=== PATIENT | female | born 1965 | race African-American/Black ===

== ENCOUNTER → 2016-12-22 | Outpatient (CLI) | payer BC, OTHER ==
[~2016-12-22] MED LIST: ALLERGY25 M1 PO; ALPRAZOLAM1 MG PO; BENTYL20 M1 PO; CETIRIZINE HC1 MG/ML PO; CIPROFLOXACIN500 M1 PO; DETROL LA2 MG DOB; FLUCONAZOLE150 M1 PO; GLUCOPHAGE500 MG PO; LISINOPRIL-HCTZ1 T14 PO; LISINOPRIL20 MG PO; NITROFURANTOIN100 M3 PO; OMEPRAZOLE40 M1 PO; ONDANSETRON ODT4 MG PO; POTASSIUM CHLO10 ME1 PO; SYNTHROID25 MCG PO; TIZANIDINE HCL2 MG PO; TRIAMCINOLONE AC1 GM EXT; VALIUM10 MG PO; [UNRECOGNIZED DRUG - REMARK]
--- NOTE | ~2016-12-22 | US98 ---
[facility] A Service of [facility] RADIOLOGY TEXT RESULTS PATIENT: FELICITAS BLACKBURN LOCATION: [facility] : 63 UNIT #: [id number] AGE: [address]: Elda Xie MD SEX: F ORDER DR: [id number] [facility] [address] [facility]. [place], [place] [address] [id number] O MR#: [id number] Acc #: [id number] NAME: FELICITAS BLACKBURN : 1965 SEX: F STUDY DATE/TIME: 12/22/2016 11:07 UNIT: [facility] ROOM: STUDY DESCRIPTION: US Pelvic Non-OB Complete Attending Physician: Elda Xie M.D. Referring Physician: Elda Xie M.D. Ordering Physician: Elda Xie M.D. Primary Care Physician: Elda Xie M.D. MEDICAL IMAGING REPORT This report is preliminary unless electronic signature is present EXAM Pelvic ultrasound INDICATION Ovarian cysts. These were seen on a prior ultrasound from 06/10/2016. This is a followup study. TECHNIQUE Veliz-scale, color Doppler, and spectral Doppler waveform analysis was performed through the patient's pelvis both transabdominally and transvaginally. FINDINGS The uterus measures up to 9.2 x 5.4 x 6.5 cm. It is somewhat heterogeneous in echotexture. Endometrium is thickened with [employer] measuring it up to 1.0 cm which would be abnormal in a postmenopausal woman. Patient reportedly had her last normal menstrual period 4 months ago. Patient does have a uterine fibroid measuring 1.3 x 1.5 x 1.6 cm. There is also probably a cyst seen within the uterus. There is debris is seen within the endometrial canal of uncertain clinical significance. Given endometrial thickening and heterogeneous appearance of the endometrium, I would suggest a gynecologic consultation for consideration for hysteroscopy. No free fluid is seen within the cul-de-sac. Patient's right ovary appears unremarkable. Left ovary was not seen. IMPRESSION 1. Very heterogeneous appearing endometrium, with potential fluid and debris seen within the endometrial canal. The endometrium is also thickened for a postmenopausal woman and reportedly patient's last normal menstrual period was 4 months ago. As a consequence, I would suggest gynecologic consultation for consideration for hysteroscopy. 2. Left ovary cannot be identified. Right ovary appears unremarkable. 3. Uterine fibroid. [facility] A Service of [facility] RADIOLOGY TEXT RESULTS PATIENT: FELICITAS BLACKBURN LOCATION: [facility] : 63 UNIT #: [id number] AGE: [address]: Elda Xie MD SEX: F ORDER DR: Dictated by... Gayatri Byers M.D. THIS IS AN ELECTRONICALLY VERIFIED REPORT Gayatri Byers M.D. at 12/23/2016 8:03 PM AFF/aa TD: 12/22/2016 19:10 JOB #: [id number] MEDICAL IMAGING REPORT COPY
== END | disposition home or self-care (01) ==
LOC: CWCC 10:34
DX: N83.209 Unspecified ovarian cyst, unspecified side (principal); R93.8 Abnormal findings on diagnostic imaging of other specified body structures; D25.9 Leiomyoma of uterus, unspecified
CPT/HCPCS: 76830; 76856

== ENCOUNTER → 2017-01-27 | Day surgery (SDC) | payer BC ==
--- NOTE | ~2017-01-27 | OR ---
Unit #: [id number] #: [id number] Patient: FELICITAS BLACKBURN [id number] [address] [place], [place] [address] [id number] O MR#: [id number] NAME: FELICITAS BLACKBURN ROOM: Date of Procedure: 01/27/2017 Admission Date: 01/27/2017 Surgeon: Jayedn Weaver M.D. : 1965 Attending Physician: Jayden Weaver M.D. Referring Physician: Jayden Weaver M.D. Primary Care Physician: Elda Xie M.D. OPERATIVE REPORT PROCEDURES PERFORMED Esophagogastroduodenoscopy with biopsy and colonoscopy to cecum. INDICATIONS FOR PROCEDURE The patient with irregular bowel movements, average risk for colorectal cancer, also with chronic GERD symptoms, and abdominal pain, undergoing evaluation with upper endoscopy and colonoscopy. MEDICATIONS Monitored anesthesia. POSTOPERATIVE FINDINGS 1. Mild gastritis. Biopsies taken. 2. Normal esophagus. 3. Normal duodenum and distal duodenum. 4. Colonoscopy completed to cecum. No polyps, masses, or colitis were seen. Mucosa was normal and healthy. 5. Good prep. 6. Internal hemorrhoids. PLAN Symptomatic treatment. DESCRIPTION OF PROCEDURE The patient was explained of the procedure, risks, and benefits along with the risks and benefits of anesthesia. She was brought to the endoscopy room. Propofol anesthesia was given. Bite block was placed. The scope was passed down the mouth into esophagus, stomach, duodenum, and distal duodenum. Findings as described. Biopsies taken. Gently, I pulled it out of the patient's mouth. She tolerated it well. At this time, she was turned around and repositioned for colonoscopy. Rectal exam was done, which was normal. Colonoscope was lubricated, passed up the rectum, advanced under direct vision all the way to the cecum. Cecum was identified by ileocecal valve and appendiceal orifice. No polyps, masses, or colitis were seen. Mucosa was normal and healthy. I retroflexed in the rectum, small hemorrhoids seen. Gently, the scope was pulled out. She tolerated it well. No major complications were seen. Dictated by... Jayden Weaver M.D. Unit #: [id number] #: [id number] Patient: FELICITAS BLACKBURN/stephanie TD: 01/28/2017 02:27 JOB #: [id number] OPERATIVE REPORT Page 1 of 1 X Jayden Weaver MD PROCEDURE OPERATIVE NOTE
== END | disposition home or self-care (01) ==
LOC: COPS 09:37
DX: K29.50 Unspecified chronic gastritis without bleeding (principal); K64.8 Other hemorrhoids; R10.9 Unspecified abdominal pain; E03.9 Hypothyroidism, unspecified; R01.1 Cardiac murmur, unspecified; E11.9 Type 2 diabetes mellitus without complications; I10 Essential (primary) hypertension; Z88.8 Allergy status to other drugs, medicaments and biological substances; Z79.899 Other long term (current) drug therapy; Z86.2 Personal history of diseases of the blood and blood-forming organs and certain disorders involving the immune mechanism
CPT/HCPCS: 82947; 84703; 88305; 88312